=== PATIENT | female | born 1975 | race Caucasian/White ===

== ENCOUNTER 2024-05-29 01:19 | Observation (INO) ==
--- NOTE | 2024-05-29 01:29 | Emergency Department Note ---
Impression & Plan UTI (urinary tract infection), Abdominal pain, Nausea & vomiting, Hypertensive urgency ED Provider Note NAME: RAFAEL MUNSON AGE: 48 SEX: F : 1975 ARRIVES VIA: Ambulance INFORMANT: Patient ED PROVIDER(S): Jose Guthrie MD CHIEF COMPLAINT: Abdominal pain PLAN: Disposition: Admit MEDICAL DECISION MAKING: The patient is a 48-year-old woman with past medical history of type 2 diabetes, hypertension, GERD who presents to the emergency department via EMS and then accompanied by her mother and sister for evaluation of ongoing mid abdominal pain where the patient had reported vomiting blood repeatedly since yesterday. Patient had been seen at [facility] approximately 24 hours ago and then again at [facility] where she had extensive testing at both sites including CT scan of her head as well as CTA of her chest and abdomen pelvis. Patient had unremarkable blood work per discussion with [facility] emergency department discharge rn. Patient had been scheduled for an endoscopy with GI this morning for further assessment of her symptoms and had been given instructions for n.p.o. status for her assessment. The patient's mother and her sister report that they were concerned because of her ongoing pain and felt she is not acting her usual self. Thus, they bring her to this facility for additional evaluation. On evaluation patient is uncomfortable no distress, afebrile with blood pressure in 140s/80s and vital signs otherwise stable. She appears clinically dry. She has generalized abdominal discomfort without discrete tenderness. EKG without overt acute ischemia. CXR negative for acute cardiopulmonary process per my personal preliminary review/interpretation. WBC, H/H and platelets within normal limits. There is no left shift. Chemistry without metabolic acidosis. BUNs/creatinine 35, consistent with patient's clinically dry appearance. Total bilirubin is within normal limits. LFTs are otherwise normal. Ammonia is not elevated. High-sensitivity troponin is 10.6, within normal limits. Lipase is normal. Procalcitonin is within normal limits. UA is suspicious for infection with 2+ bacteria and WBCs albeit with negative nitrites. CT of the head was negative for acute normalities. CT of the chest demonstrates incidental ectasia of the ascending aorta and otherwise no septal thickening which is nonspecific and likely atelectasis. CT of the pelvis describes striated nephrogram of the superior pole of the left kidney which could suggest acute pyelonephritis. Infiltrative neoplasm is also possible but less likely. Description of distended bladder is noted however the patient did urinate significantly following CT per her RN. Upon evaluation the patient's blood pressure had become markedly elevated in the 200s/100s though did improve to the 170s/100s. Given the persistent of the patient's symptoms patient and mother agree with plan for admission for further management. IV ceftriaxone initiated for UTI with possible upper GI involvement. Patient was also given 10 mg of IV labetalol for hypertensive urgency. Additionally, the patient was given Carafate for suspicion of component of gastritis given the location of her abdominal pain and associated nausea. Adverse effects from patient's Ozempic is also considered. Case was discussed with [place]. Montiel, [facility] [place], who will evaluate the patient for admission. Further management per admitting team. Triage Nursing notes reviewed and agree them. Prior/external medical records reviewed Vital Signs: reviewed Differential diagnosis: Gastroenteritis, food borne illness, infections, appendicitis, diverticulitis, inflammatory bowel disease, obstruction, GI bleed, biliary pathology, volvulus, as well as other pathologies. ER treatment provided: See below. Diagnostics interpreted by me: ECG: Normal sinus rhythm, 98 bpm, no ectopy, no overt ST ovation or depression, QTc 510, QRS 92. Cardiac Monitoring: An order for continuous cardiac monitoring was placed and demonstrated Normal sinus rhythm, 98 bpm, no ectopy. Laboratory studies: See below Imaging studies: See below Consultation(s): Dr. Montiel [facility] [place], HPI: The patient is a 48-year-old woman with past medical history of type 2 diabetes, hypertension, GERD who presents to the emergency department via EMS and then accompanied by her mother and sister for evaluation of ongoing mid abdominal pain where the patient had reported vomiting blood repeatedly since yesterday. Patient had been seen at [facility] approximately 24 hours ago and then again at [facility] where she had extensive testing at both sites including CT scan of her head as well as CTA of her chest and abdomen pelvis. Patient had unremarkable blood work per discussion with [facility] emergency department discharge rn. Patient had been scheduled for an endoscopy with GI this morning for further assessment of her symptoms and had been given instructions for n.p.o. status for her assessment. The patient's mother and her sister report that they were concerned because of her ongoing pain and felt she is not acting her usual self. Thus, they bring her to this facility for additional evaluation. ROS: See above HPI for pertinent positives & negatives. A total of 10 systems reviewed and were otherwise negative. VITALS:See Below PHYSICAL EXAMINATION: GENERAL: Awake, alert, in no distress, BMI 28.6. HENT: Normocephalic, atraumatic. Oropharynx with dry mucous membranes and otherwise unremarkable. EYES: Normal conjunctiva. Sclera non-icteric. EOMI. No nystamgus. PEARRL. NECK: Supple. No nuchal rigidity. FROM. No JVD. No crepitus. RESPIRATORY: Clear to auscultation. CARDIAC: Regular rate, normal rhythm. Extremities warm and well perfused. Pulses equal. ABDOMEN: Soft, non-distended. Generalized abdominal discomfort without discrete tenderness to palpation. No rebound or guarding. No masses. MUSCULOSKELETAL: Chest examination reveals no tenderness. The back is symmetrical on inspection without obvious abnormality. There is no CVA tenderness to palpation. No joint edema. LOWER EXTREMITIES: Calves are equal size bilaterally and non-tender. No edema. No discoloration. NEURO: Normal sensorium. No sensory or motor deficits noted. 5/5 strength and SILT x 4 extremities. SKIN: No rash or jaundice noted. Jose Guthrie MD Past Med/Surg History Problem List (Updated 05/29/24 @ 10:01 by Jose Guthrie MD) Elevated blood sugar Bladder distended Hypertensive urgency (Acute) Nausea & vomiting (Acute) Abdominal pain (Acute) UTI (urinary tract infection) (Acute) Medical History Chronic heel ulcer Restless leg syndrome Hypertension Hyperlipidemia Neuropathy Type 2 diabetes mellitus Social History Smoking Status: Never smoker Second Hand Exposure: No; Do You Dip or Chew Tobacco: No; Tobacco Cessation Education Requested by Patient: No Hx Alcohol Use: No Hx Substance Use: No Preferred Language: Divehi Communication Ability: Effective [employer] Technical Director Required: No Beliefs That Will Affect Care: None Current Living Situation: Alone Other Information That Helps Us Care for You: No Feels Safe at Home: Yes Safety Concerns: Feels Safe At This Time Assistive Devices: None Allergies Allergies Allergy/AdvReac Type Severity Reaction Status Date / Time Penicillins Allergy Rash Verified 05/29/24 09:10 Results & Data (ED) Vital Signs Vital Signs - 24 hr 05/29/24 01:27 05/29/24 01:34 05/29/24 01:39 Temperature Source Oral Pulse Rate 87 95 H 98 H Pulse Rate [Apical] Pulse Rate from SpO2 Sensor 98 H Pulse Rhythm Regular Pulse Strength Normal Respiratory Rate 18 23 Respiratory Effort / Characteristics Non-Labored Respiratory Depth Normal Respiratory Pattern Regular Blood Pressure 141/89 H Blood Pressure [Left Arm] Blood Pressure Mean 106 Blood Pressure Mean [Left Arm] Blood Pressure Position Sitting Pulse Oximetry 93 95 Oxygen Delivery Method Room Air Sepsis Recent Fever Within 48 Hours No Sepsis New/Unexplained Change in Mental Status No Sepsis Action Taken by Nursing No Action Required 05/29/24 01:45 05/29/24 02:00 05/29/24 02:09 Temperature Source Pulse Rate 98 H 100 H Pulse Rate [Apical] Pulse Rate from SpO2 Sensor 98 H 101 H Pulse Rhythm Pulse Strength Respiratory Rate 14 19 Respiratory Effort / Characteristics Respiratory Depth Respiratory Pattern Blood Pressure 155/115 H Blood Pressure [Left Arm] Blood Pressure Mean 130 Blood Pressure Mean [Left Arm] Blood Pressure Position Pulse Oximetry 92 92 Oxygen Delivery Method Sepsis Recent Fever Within 48 Hours Sepsis New/Unexplained Change in Mental Status Sepsis Action Taken by Nursing 05/29/24 02:39 05/29/24 03:00 05/29/24 03:39 Temperature Source Pulse Rate 101 H 97 H Pulse Rate [Apical] 100 H Pulse Rate from SpO2 Sensor 101 H 97 H Pulse Rhythm Pulse Strength Respiratory Rate 22 11 L 22 Respiratory Effort / Characteristics Non-Labored Spontaneous Respiratory Depth Normal Respiratory Pattern Regular Blood Pressure Blood Pressure [Left Arm] 201/116 H Blood Pressure Mean Blood Pressure Mean [Left Arm] 144 Blood Pressure Position Pulse Oximetry 93 92 96 Oxygen Delivery Method Room Air Sepsis Recent Fever Within 48 Hours Sepsis New/Unexplained Change in Mental Status Sepsis Action Taken by Nursing 05/29/24 05:03 05/29/24 05:19 05/29/24 05:30 Temperature Source Pulse Rate 103 H 101 H Pulse Rate [Apical] 99 H Pulse Rate from SpO2 Sensor Pulse Rhythm Pulse Strength Respiratory Rate 14 Respiratory Effort / Characteristics Non-Labored Spontaneous Respiratory Depth Normal Respiratory Pattern Regular Blood Pressure 177/102 H Blood Pressure [Left Arm] 166/108 H Blood Pressure Mean Blood Pressure Mean [Left Arm] 127 Blood Pressure Position Pulse Oximetry 93 Oxygen Delivery Method Room Air Sepsis Recent Fever Within 48 Hours Sepsis New/Unexplained Change in Mental Status Sepsis Action Taken by Nursing 05/29/24 06:14 Temperature Source Pulse Rate Pulse Rate [Apical] 102 H Pulse Rate from SpO2 Sensor Pulse Rhythm Pulse Strength Respiratory Rate 12 Respiratory Effort / Characteristics Respiratory Depth Respiratory Pattern Blood Pressure Blood Pressure [Left Arm] 178/103 H Blood Pressure Mean Blood Pressure Mean [Left Arm] 128 Blood Pressure Position Pulse Oximetry 97 Oxygen Delivery Method Room Air Sepsis Recent Fever Within 48 Hours Sepsis New/Unexplained Change in Mental Status Sepsis Action Taken by Nursing Laboratory Data Attestation: I reviewed the patient's lab results. 05/29/24 01:34 05/29/24 01:34 Lab Results 05/29/24 05/29/24 05/29/24 Range/Units 01:34 02:06 03:37 WBC 9.36 (4.8-10.8) K/ul RBC 4.71 (4.20-5.40) M/uL Hgb 13.6 (12.0-16.0) g/dl Hct 41.7 (37.0-47.0) % MCV 88.5 (80.0-100.0) fL MCH 28.9 (25.0-34.0) pg MCHC 32.6 (32.0-36.0) g/dL RDW Std Deviation 41.9 (36.4-46.3) fL RDW Coeff of Rocio 13.0 (11.5-14.5) % Plt Count 274 (130-400) K/uL MPV 11.3 (9.4-12.4) fL Immature Gran % (Auto) 0.4 % Neut % (Auto) 73.6 % Lymph % (Auto) 17.1 % Tyrrell % (Auto) 8.7 % Eos % (Auto) 0.0 % Baso % (Auto) 0.2 % Neut # (Auto) 6.89 H (1.40-6.50) K/uL Lymph # (Auto) 1.60 (1.20-3.40) K/uL Tyrrell # (Auto) 0.81 H (0.11-0.59) K/uL Eos # (Auto) 0.00 (0.00-0.50) K/uL Baso # (Auto) 0.02 (0.00-0.20) K/uL Immature Gran # (Auto) 0.04 (0.01-0.20) K/uL PT 11.5 (9.0-12.0) Seconds INR 1.1 (0.9-1.1) Sodium 145 (136-145) mmol/L Potassium 3.7 (3.5-5.1) mmol/L Chloride 108 H (98-107) mmol/L Carbon Dioxide 27 (21-32) mmol/L Anion Gap 10 (3-11) BUN 27 H (6-23) mg/dl Creatinine 0.77 (0.6-1.2) mg/dl Est Cr Clr Drug Dosing 101.2 ml/min Est GFR ( Amer) 105.1 ml/min Est GFR (Non-Af Amer) 90.7 ml/min BUN/Creatinine Ratio 35.1 H (10-20) Glucose 283 H (70-99(Fasting)) mg/dl Calcium 9.1 (8.6-10.3) mg/dl Total Bilirubin 0.7 (0.2-1.0) mg/dl Direct Bilirubin 0.1 (0-0.2) mg/dl AST 17 (13-39) U/L ALT 16 (7-52) U/L Alkaline Phosphatase 76 (34-104) U/L Ammonia 15.0 L (18-72) umol/L Troponin I High Sens 10.6 (0-14) pg/ml Total Protein 7.7 (6.0-8.3) gm/dl Albumin 3.9 (3.4-5.0) gm/dl Globulin 3.8 (2.5-4.0) gm/dl Albumin/Globulin Ratio 1.0 (0.9-2) Lipase 16 (11-82) U/L Procalcitonin 0.09 (0-0.5) ng/ml Urine Color Yellow Urine Appearance Clear (Clear) Urine pH 6.0 (4.5-7.5) Ur Specific Superior > 1.045 H (1.000-1.030) Urine Protein 2+ H (Negative) Urine Glucose (UA) 3+ H (Negative) Urine Ketones 2+ H (Negative) Urine Blood Negative (Negative) Urine Nitrite Negative (Negative) Urine Bilirubin Negative (Negative) Urine Urobilinogen Negative (Negative) Ur Leukocyte Esterase Negative (Negative) Urine WBC (Auto) 6-10 H (0-5) /hpf Urine RBC (Auto) 0-2 (0-2) /hpf U Hyaline Cast (Auto) 0-2 (0-2) /lpf U Epithel Cells (Auto) 6-10 H (0-2) /hpf Urine Bacteria (Auto) 2+ H (None Seen) Urine Opiates Screen Pos H (Neg) Ur Methadone, Qual Neg (Neg) Urine Fentanyl Screen Neg (Neg) Urine Barbiturates Neg (Neg) Ur Phencyclidine (PCP) Neg (Neg) U Amphetamin/Meth Scrn Neg (Neg) MDMA (Ecstasy) Screen Neg (Neg) U Benzodiazepines Scrn Neg (Neg) Ur Cocaine Metabolite Neg (Neg) U Marijuana (THC) Screen Neg (Neg) Ethyl Alcohol mg/dL < 10.0 (<10.0) mg/dl Administered Medications Discontinued Medications Dicyclomine HCl (Dicyclomine Hcl 10 Mg/Ml 2 Ml Amp/Vial) 20 mg IM NOW ONE Stop: 05/29/24 04:58 Last Admin: 05/29/24 06:04 Dose: 20 mg Documented By: PEDRO Sodium Chloride (Nss) 1,000 mls @ 999 mls/hr IV .Q1H1M ONE Stop: 05/29/24 02:28 Last Infusion: 05/29/24 03:01 Dose: Infused Documented By: Admin: 05/29/24 01:49 Dose: 999 mls/hr Documented By: RADHA Famotidine (Pepcid 20mg Iv Push) 20 mg in 5 mls @ 2.5 mls/min IV NOW STA Stop: 05/29/24 01:29 Last Admin: 05/29/24 01:49 Dose: 2.5 mls/min Documented By: RADHA Promethazine HCl (Phenergan) 25 mg in 51 mls @ 204 mls/hr IV NOW STA Stop: 05/29/24 01:42 Last Infusion: 05/29/24 03:01 Dose: Infused Documented By: Admin: 05/29/24 01:52 Dose: 204 mls/hr Documented By: RADHA Pantoprazole Sodium 40 mg/ (Syringe) 10 mls @ 5 mls/min IV NOW ONE Stop: 05/29/24 01:41 Last Admin: 05/29/24 03:10 Dose: 5 mls/min Documented By: PEDRO Ceftriaxone Sodium (Rocephin) 2,000 mg in 50 mls @ 100 mls/hr IV NOW STA Stop: 05/29/24 05:16 Last Infusion: 05/29/24 06:57 Dose: Infused Documented By: Admin: 05/29/24 05:09 Dose: 100 mls/hr Documented By: PEDRO Ioversol (Optiray 320 125ml) 125 ml IV ONCE ONE Stop: 05/29/24 02:23 Last Admin: 05/29/24 02:22 Dose: 118 ml Documented By: TOM Labetalol HCl (Labetalol Hcl Iv 5 Mg/Ml 20ml) 10 mg IV NOW STA Stop: 05/29/24 04:58 Last Admin: 05/29/24 05:03 Dose: 10 mg Documented By: PEDRO Sucralfate (Sucralfate 1 Gm/10 Ml Udc) 1 gm PO NOW STA Stop: 05/29/24 04:58 Last Admin: 05/29/24 05:46 Dose: 1 gm Documented By: PEDRO Imaging Data Radiologist's Impression: Chest X-Ray 05/29/24 01:27 XR chest 1V portable CLINICAL HISTORY: Abdominal pain, nausea and vomiting. COMPARISON STUDY: No previous studies for comparison. FINDINGS: There is mild elevation of the right hemidiaphragm. No pneumothorax or pleural effusion is present. Bibasilar linear densities favor atelectasis. There is borderline cardiomegaly without evidence for pulmonary edema. IMPRESSION: 1. No acute cardiopulmonary findings. 2. Linear bibasilar densities suggestive of atelectasis. ACT 112: Negative or not required by law. Electronically signed by: Priyank Archibald M.D. 05/29/2024 7:04 AM Abdomen/Pelvis CT 05/29/24 01:43 Exam(s): CT ABDOMEN + PELVIS With Contrast IV Amt: 118 ml optiray 320 EXAM: CT Abdomen and Pelvis With Intravenous Contrast CLINICAL HISTORY: Abdominal Pain. TECHNIQUE: Axial computed tomography images of the abdomen and pelvis with intravenous contrast. CTDI is 38.03 mGy and DLP is 3010.95 mGy-cm. Automated exposure control was utilized for the study. A dose lowering technique was utilized adhering to the principles of ALARA. CONTRAST: Patient received 118 ml optiray 320 of IV contrast COMPARISON: No relevant prior studies available. FINDINGS: Lung bases: Unremarkable. No mass. No consolidation. ABDOMEN: Liver: Unremarkable. No mass. Gallbladder and bile ducts: Cholecystectomy. No ductal dilation. Pancreas: Unremarkable. No mass. No ductal dilation. Spleen: Unremarkable. No splenomegaly. Adrenals: Unremarkable. No mass. Kidneys and ureters: Striated nephrogram of the superior pole of the left kidney could represent acute pyelonephritis, infiltrative neoplasm of acute tubular necrosis or considered less likely. No hydronephrosis. Stomach and bowel: Unremarkable. No obstruction. No mucosal thickening. PELVIS: Appendix: Normal appendix. Bladder: Markedly distended urinary bladder. Reproductive: Hysterectomy. ABDOMEN and PELVIS: Intraperitoneal space: Unremarkable. No free air. No significant fluid collection. Bones/joints: There are degenerative changes of the spine. No acute fracture. No dislocation. Soft tissues: Unremarkable. Vasculature: Minimal atherosclerosis. No abdominal aortic aneurysm. Lymph nodes: Unremarkable. No enlarged lymph nodes. IMPRESSION: 1. Striated nephrogram of the superior pole of the left kidney could represent acute pyelonephritis, infiltrative neoplasm of acute tubular necrosis or considered less likely. 2. Markedly distended urinary bladder. Cannot exclude outlet obstruction. 3. No evidence of colon mass, however recommend follow-up with colonoscopy for complete evaluation. Electronically signed by: Christina Gee MD 05/29/24 03:09 AM Chest CTA 05/29/24 01:43 Exam(s): CTA CHEST IV Amt: 118 ml optiray 320 EXAM: CT Angiography Chest With Intravenous Contrast CLINICAL HISTORY: Chest Pain TECHNIQUE: Axial computed tomographic angiography images of the chest with intravenous contrast. MIPS images were created and reviewed. CTDI is 38. 03 mGy and DLP is 3010.95 mGy-cm. Automated exposure control was utilized for the study. A dose lowering technique was utilized adhering to the principles of ALARA. MIP reconstructed images were created and reviewed. COMPARISON: No relevant prior studies available. FINDINGS: Pulmonary arteries: Unremarkable. No pulmonary embolus. Aorta: There is ectasia of the ascending aorta measuring 3.6 cm. No thoracic aortic aneurysm. Lungs: Interseptal thickening could relate to atelectasis and/or pulmonary edema. No mass. Pleural space: Unremarkable. No significant effusion. No pneumothorax. Heart: Upper limits of normal cardiac silhouette. No significant pericardial effusion. No evidence of RV dysfunction. Bones/joints: There are degenerative changes of the spine. No acute fracture. No dislocation. Soft tissues: Unremarkable. Lymph nodes: Unremarkable. No enlarged lymph nodes. IMPRESSION: 1. No pulmonary embolus. 2. There is ectasia of the ascending aorta measuring 3.6 cm. 3. Interseptal thickening could relate to atelectasis and/or pulmonary edema. Electronically signed by: Christina Gee MD 05/29/24 03:[address] 05/29/24 01:43 Exam(s): CT HEAD Without Contrast EXAM: CT Head Without Intravenous Contrast CLINICAL HISTORY: Altered mental status. TECHNIQUE: Axial computed tomography images of the head/brain without intravenous contrast. CTDI is 27.32 mGy and DLP is 3010.95 mGy-cm. Automated exposure control was utilized for the study. A dose lowering technique was utilized adhering to the principles of ALARA. COMPARISON: No relevant prior studies available. FINDINGS: Brain: Unremarkable. No significant white matter disease. No intracranial hemorrhage, mass-effect or midline shift. No abnormal extra axial fluid. No evidence of acute infarct. Ventricles: Unremarkable. No ventriculomegaly. Bones/joints: Unremarkable. No acute fracture. Soft tissues: Unremarkable. Sinuses: There is mild mucosal thickening of the ethmoid and maxillary sinuses. The remaining visualized paranasal sinuses are clear. Mastoid air cells: Unremarkable as visualized. No mastoid effusion. IMPRESSION: No acute intracranial finding. Electronically signed by: Christina Gee MD 05/29/24 03:11 AM Discharge Plan Visit Data Chief Complaint: Abdominal Pain Stated Complaint: AB PAIN, VOMITING BLOOD ED Provider: Jose Guthrie Discharge Problem: UTI (urinary tract infection), Abdominal pain, Nausea & vomiting, Hypertensive urgency Patient Disposition: Admitted As Inpatient Discharge Instructions Interventions: ED Discharge Assessment Last Done: 05/29/24 08:23 Discharge Problem: UTI (urinary tract infection) Qualifiers: Urinary tract infection type: site unspecified Hematuria presence: with hematuria Qualified Code(s): N39.0 - Urinary tract infection, site not specified ; R31.9 - Hematuria, unspecified Abdominal pain Qualifiers: Abdominal location: generalized Qualified Code(s): R10.84 - Generalized abdominal pain Nausea & vomiting Qualifiers: Vomiting type: unspecified Qualified Code(s): R11.2 - Nausea with vomiting, unspecified
[2024-05-29] MEDS: FAMOTIDINE 20MG IV PUSH 20 MG/5 ML SYR IV STA (01:49)
[2024-05-29] MEDS: SODIUM CHLORIDE 0.9% 1,000 ML IV ONE (01:49)
[2024-05-29] MEDS: PROMETHAZINE 25 MG/51 ML BAG IV STA (01:52)
[2024-05-29 02:06] LABS: Albumin Level 3.9 gm/dl (3.4-5.0); BUN Creatinine Ratio 35.1 (10-20); Bilirubin Direct 0.1 mg/dl (0-0.2); Bilirubin,Total 0.7 mg/dl (0.2-1.0); Calcium 9.1 mg/dl (8.6-10.3); Creatinine Clr Calc Pharmacy 101.2 ml/min; Est GFR (African American) 105.1 ml/min; Est GFR (Non-African American) 90.7 ml/min; Globulin 3.8 gm/dl (2.5-4.0); Potassium 3.7 mmol/L (3.5-5.1); Total Protein 7.7 gm/dl (6.0-8.3)
[2024-05-29 02:10] LABS: Basophils # (auto) 0.02 K/uL (0.00-0.20); Basophils % (auto) 0.2 %; Hematocrit (blood only) 41.7 % (37.0-47.0); Hemoglobin 13.6 g/dl (12.0-16.0); Immature Granulocytes # (auto) 0.04 K/uL (0.01-0.20); Immature Granulocytes % (auto) 0.4 %; Lymphocytes % (auto) 17.1 %; Mean Corpuscular Hemoglobin 28.9 pg (25.0-34.0); Mean Corpuscular Hgb Conc 32.6 g/dL (32.0-36.0); Mean Corpuscular Volume 88.5 fL (80.0-100.0); Mean Platelet Volume 11.3 fL (9.4-12.4); Monocytes # (auto) 0.81 K/uL (0.11-0.59); Monocytes % (auto) 8.7 %; Neutrophils # (auto) 6.89 K/uL (1.40-6.50); Neutrophils % (auto) 73.6 %; Platelet Count 274 K/uL (130-400); RDW Standard Deviation 41.9 fL (36.4-46.3); Red Blood Count 4.71 M/uL (4.20-5.40); White Blood Count 9.36 K/ul (4.8-10.8)
[2024-05-29 02:12] LABS: Troponin I High Sensitivity 10.6 pg/ml (0-14)
[2024-05-29 02:17] LABS: INR 1.1 (0.9-1.1); Prothrombin Time 11.5 Seconds (9.0-12.0)
[2024-05-29] MEDS: OPTIRAY 320 125ml IV ONE (02:22)
[2024-05-29] MEDS: PANTOprazole 40 MG in SYRINGE 0 ML IV ONE (03:10)
--- NOTE | 2024-05-29 03:10 | CT Scan Report ---
Exam(s): CT ABDOMEN + PELVIS With Contrast IV Amt: 118 ml optiray 320 EXAM: CT Abdomen and Pelvis With Intravenous Contrast CLINICAL HISTORY: Abdominal Pain. TECHNIQUE: Axial computed tomography images of the abdomen and pelvis with intravenous contrast. CTDI is 38.03 mGy and DLP is 3010.95 mGy-cm. Automated exposure control was utilized for the study. A dose lowering technique was utilized adhering to the principles of ALARA. CONTRAST: Patient received 118 ml optiray 320 of IV contrast COMPARISON: No relevant prior studies available. FINDINGS: Lung bases: Unremarkable. No mass. No consolidation. ABDOMEN: Liver: Unremarkable. No mass. Gallbladder and bile ducts: Cholecystectomy. No ductal dilation. Pancreas: Unremarkable. No mass. No ductal dilation. Spleen: Unremarkable. No splenomegaly. Adrenals: Unremarkable. No mass. Kidneys and ureters: Striated nephrogram of the superior pole of the left kidney could represent acute pyelonephritis, infiltrative neoplasm of acute tubular necrosis or considered less likely. No hydronephrosis. Stomach and bowel: Unremarkable. No obstruction. No mucosal thickening. PELVIS: Appendix: Normal appendix. Bladder: Markedly distended urinary bladder. Reproductive: Hysterectomy. ABDOMEN and PELVIS: Intraperitoneal space: Unremarkable. No free air. No significant fluid collection. Bones/joints: There are degenerative changes of the spine. No acute fracture. No dislocation. Soft tissues: Unremarkable. Vasculature: Minimal atherosclerosis. No abdominal aortic aneurysm. Lymph nodes: Unremarkable. No enlarged lymph nodes. IMPRESSION: 1. Striated nephrogram of the superior pole of the left kidney could represent acute pyelonephritis, infiltrative neoplasm of acute tubular necrosis or considered less likely. 2. Markedly distended urinary bladder. Cannot exclude outlet obstruction. 3. No evidence of colon mass, however recommend follow-up with colonoscopy for complete evaluation. Electronically signed by: Christina Gee MD 05/29/24 03:09 AM
--- NOTE | 2024-05-29 03:12 | CT Scan Report ---
Exam(s): CT HEAD Without Contrast EXAM: CT Head Without Intravenous Contrast CLINICAL HISTORY: Altered mental status. TECHNIQUE: Axial computed tomography images of the head/brain without intravenous contrast. CTDI is 27.32 mGy and DLP is 3010.95 mGy-cm. Automated exposure control was utilized for the study. A dose lowering technique was utilized adhering to the principles of ALARA. COMPARISON: No relevant prior studies available. FINDINGS: Brain: Unremarkable. No significant white matter disease. No intracranial hemorrhage, mass-effect or midline shift. No abnormal extra axial fluid. No evidence of acute infarct. Ventricles: Unremarkable. No ventriculomegaly. Bones/joints: Unremarkable. No acute fracture. Soft tissues: Unremarkable. Sinuses: There is mild mucosal thickening of the ethmoid and maxillary sinuses. The remaining visualized paranasal sinuses are clear. Mastoid air cells: Unremarkable as visualized. No mastoid effusion. IMPRESSION: No acute intracranial finding. Electronically signed by: Christina Gee MD 05/29/24 03:11 AM
--- NOTE | 2024-05-29 03:16 | CT Scan Report ---
Exam(s): CTA CHEST IV Amt: 118 ml optiray 320 EXAM: CT Angiography Chest With Intravenous Contrast CLINICAL HISTORY: Chest Pain TECHNIQUE: Axial computed tomographic angiography images of the chest with intravenous contrast. MIPS images were created and reviewed. CTDI is 38. 03 mGy and DLP is 3010.95 mGy-cm. Automated exposure control was utilized for the study. A dose lowering technique was utilized adhering to the principles of ALARA. MIP reconstructed images were created and reviewed. COMPARISON: No relevant prior studies available. FINDINGS: Pulmonary arteries: Unremarkable. No pulmonary embolus. Aorta: There is ectasia of the ascending aorta measuring 3.6 cm. No thoracic aortic aneurysm. Lungs: Interseptal thickening could relate to atelectasis and/or pulmonary edema. No mass. Pleural space: Unremarkable. No significant effusion. No pneumothorax. Heart: Upper limits of normal cardiac silhouette. No significant pericardial effusion. No evidence of RV dysfunction. Bones/joints: There are degenerative changes of the spine. No acute fracture. No dislocation. Soft tissues: Unremarkable. Lymph nodes: Unremarkable. No enlarged lymph nodes. IMPRESSION: 1. No pulmonary embolus. 2. There is ectasia of the ascending aorta measuring 3.6 cm. 3. Interseptal thickening could relate to atelectasis and/or pulmonary edema. Electronically signed by: Christina Gee MD 05/29/24 03:15 AM
[2024-05-29 04:03] LABS: Appearance Urine Clear (Clear); Bacteria Urine Automated 2+ (None Seen); Bilirubin Urine Negative (Negative); Blood Urine Negative (Negative); Color Urine Yellow; Glucose Urine UA 3+ (Negative); Ketones Urine 2+ (Negative); Leukocyte Esterase Urine Negative (Negative); Nitrite Urine Negative (Negative); Protein Urine 2+ (Negative); Specific Gravity Urine > 1.045 (1.000-1.030); Urobilinogen Urine Negative (Negative)
[2024-05-29 04:18] LABS: Amphetamines+Metham, Urine Neg (Neg); Barbiturates, Urine Neg (Neg); Benzodiazepine, Urine Neg (Neg); Cocaine, Urine Neg (Neg); Fentanyl, Urine Neg (Neg); MDMA (Ecstacy), Urine Neg (Neg); Marijuana, Urine Neg (Neg); Methadone, Urine Neg (Neg); Opiate, Urine Pos (Neg); Phencyclidine, Urine Neg (Neg)
[2024-05-29 04:44] LABS: Cast Urine Automated 0-2 /lpf (0-2); RBC Urine Automated 0-2 /hpf (0-2)
[2024-05-29] MEDS: LABETALOL HCL IV 5 MG/ML 20ML IV STA (05:03)
[2024-05-29] MEDS: cefTRIAXone SODIUM 2,000 MG/50 ML BAG IV STA (05:09)
[2024-05-29] MEDS: SUCRALFATE 1 GM/10 ML UDC PO STA (05:46)
[2024-05-29] MEDS: DICYCLOMINE HCL 10 MG/ML 2 ML AMP/VIAL IM ONE (06:04)
--- NOTE | 2024-05-29 06:44 | History & Physical Report ---
Date of Service May 29, 2024 Assessment & Plan (1) Abdominal pain: Plan: 48F who presents to the ER with abdominal pain, nausea, vomiting x 3 days. Now admitted for further evaluation, symptomatic management. Abdominal Pain/Nausea/Vomiting/Bladder Distention -Left kidney striation, bladder distention noted on CT A/P. No sign of kidney stone, or hydronephrosis. No evidence of colonic mass, though colonoscopy recommended for full evaluation. -Electrolytes, LFTs, CBC unremarkable. UA mildly positive, but not strongly indicative of UTI. UDS positive for opiates, though most likely from pain control given previous hospital. PDMP shows she was last prescribed oxycodone 5 mg in October 2022. Full urine drug report pending. -Etiology unclear at this time. Left kidney findings notable but does not correlate clinically with patient's presentation (no flank pain, no dysuria, nonradiating abdominal pain), save for emesis. Also unable to review discharge summary from [facility] as of the time of this note when scanned into chart, would be useful to glean for additional diagnostic information. * Admit to med telemetry n.p.o. * IV Zofran every 4 hours as needed nausea * IV Protonix 40 mg twice daily EUNICE * IV famotidine 20 mg twice daily as needed * Maintenance IVF: LR@125 mL/h x 1 bag * Repeat H&H this a.m. * Repeat BMP ordered for noon * Urine culture pending * Bladder scan, straight cath as needed * GI consult placed for evaluation for possible upper endoscopy Elevated Blood Sugar -BSG 283 on arrival. No prior labs, HgbA1c in chart patient originally from [place]. * SSI, ACHS checks per protocol (range 100-140; CF = 40, CR = 20) * HgbA1c ordered Code: Full code Dispo: Med-Surg telemetry FEN/GI: NPO. LR @maintenance rate. DVT Prophylaxis: Held PT/OT: No Consults: Gastroenterology Case Management: No (2) Nausea & vomiting: (3) Bladder distended: (4) Elevated blood sugar: History of Present Illness Primary Care Provider: NO PCP Maxine is a 48-year-old woman with no significant past medical history visiting from [place] who presents to the ER with her mom with a complaint of abdominal pain, nausea, and hematemesis since Tuesday. Symptoms began with nonradiating abdominal pain, then proceeded to vomiting blood soon after. She initially presented to the hospital in [place], where she received IV Zofran and was sent home. She continued throwing up blood over the following day, until Tuesday when she traveled to [place] to be with her sister. Sister then took her to her mother in [place], where she again went to the hospital. There she received IV morphine, and Dilaudid, at which point she was again discharged. Mom then decided to bring her to [facility], where she presented to the ER. ER workup was notable for blood glucose of 283, UA positive for proteinuria 2+, glucosuria 3+, ketonuria 2+, bacteria 2+ (negative nitrates, no leuk esterases), and UDS positive for opiates. Otherwise, WBC, Hgb, electrolytes, LFTs, procalcitonin, lipase were all normal. CT A/P noted "striated nephrogram at superior pole of the left kidney could represent acute pyelonephritis, infiltrative neoplasm of acute tubular necrosis or considered less likely" and a "markedly distended urinary bladder." She received IV Phenergan, IV Bentyl, IV Protonix, IV Carafate, IV Pepcid, IV ceftriaxone, and a 1 L NS bolus. Hospitalist service was then consulted for admission. On admission, she continues to endorse nausea, periumbilical, RLQ abdominal pain. She denies difficulty voiding, burning with urination, urinary frequency, constipation, or diarrhea. Allergies Allergy/AdvReac Type Severity Reaction Status Date / Time Penicillins Allergy Rash Verified 05/29/24 09:10 Past Med/Surg History Problem List (Updated 05/29/24 @ 10:01 by Jose Guthrie MD) Elevated blood sugar Bladder distended Hypertensive urgency (Acute) Nausea & vomiting (Acute) Abdominal pain (Acute) UTI (urinary tract infection) (Acute) Medical History Chronic heel ulcer Restless leg syndrome Hypertension Hyperlipidemia Neuropathy Type 2 diabetes mellitus Social History Smoking Status: Never smoker Second Hand Exposure: No; Do You Dip or Chew Tobacco: No; Tobacco Cessation Education Requested by Patient: No Hx Alcohol Use: No Hx Substance Use: No Preferred Language: Sierra Leonean Communication Ability: Effective Plumbing Foreman Required: No Beliefs That Will Affect Care: None Current Living Situation: Alone Other Information That Helps Us Care for You: No Feels Safe at Home: Yes Safety Concerns: Feels Safe At This Time Assistive Devices: None Review of Systems Review of Systems: All systems reviewed & are unremarkable except as noted in HPI & below Physical Exam Physical Exam: General: Tired appearing woman in mild distress. HEENT: PERRLA. Normal conjunctiva, anicteric sclera. Poor dentition noted. Respiratory: Normal respiratory effort, CTABL. Cardiovascular: Tachycardic. Regular rhythm. No murmurs, gallops, or rubs. No pedal edema. GI: Tenderness to moderate palpation elicited at the umbilicus, RLQ, and suprapubic areas. Neuro: Alert and oriented x3. Results & Data Results & Data Vital Signs (Past 12 Hours) Vital Signs Pulse Pulse Resp BP BP Pulse Ox O2 Del Method 05/29/24 06:14 102 H 12 178/103 H 97 Room Air 05/29/24 05:30 101 H 05/29/24 05:19 99 H 14 166/108 H 93 Room Air 05/29/24 05:03 103 H 177/102 H 05/29/24 03:39 100 H 22 201/116 H 96 Room Air 05/29/24 03:00 97 H 11 L 92 05/29/24 02:39 101 H 22 93 05/29/24 02:09 100 H 19 92 05/29/24 02:00 155/115 H 05/29/24 01:45 98 H 14 92 05/29/24 01:39 98 H 23 95 05/29/24 01:34 95 H 05/29/24 01:27 87 18 141/89 H 93 Room Air Supervising Physician Co-Signing Physician Notes Attending addendum: I have physically seen this patient, have supervised the medical residents activities, and agree with the H&P unless as otherwise noted. Assessment and Plan: Left acute pyelonephritis/bladder outlet extraction/urinary tract infection- Follow urine culture sensitivity Continue empiric ceftriaxone 2 g IV daily Status post 1 L normal saline bolus in the ED Continue maintenance IV fluids as noted, LR at 125 mL/h x 1 L Zofran 4 mg IV every 6 hours as needed Pantoprazole 40 mg IV twice daily Famotidine 20 mg IV twice daily Abdominal pain/nausea- CT scan abdomen pelvis without acute GI pathology Pantoprazole IV as noted above Hold Ozempic as potential cause, which she has been on for 3 weeks Consult gastroenterology Hyperglycemia in diabetes mellitus- Hold oral medications Placed on Accu-Cheks with NovoLog SSI hemoglobin A1c Resident Activity Tracking Resident Involvement: Resident Care Provided Care Provided: Adult Hospital Medicine (1) Abdominal pain Abdominal location: generalized Qualified Code(s): R10.84 - Generalized abdominal pain (2) Nausea & vomiting Vomiting type: unspecified Qualified Code(s): R11.2 - Nausea with vomiting, unspecified
--- NOTE | 2024-05-29 07:06 | XRay Report ---
XR chest 1V portable CLINICAL HISTORY: Abdominal pain, nausea and vomiting. COMPARISON STUDY: No previous studies for comparison. FINDINGS: There is mild elevation of the right hemidiaphragm. No pneumothorax or pleural effusion is present. Bibasilar linear densities favor atelectasis. There is borderline cardiomegaly without evide nce for pulmonary edema. IMPRESSION: 1. No acute cardiopulmonary findings. 2. Linear bibasilar densities suggestive of atelectasis. ACT 112: Negative or not required by law. Electronically signed by: Priyank Archibald M.D. 05/29/2024 7:04 AM
[2024-05-29] MEDS ORDERED: ALUMINUM/MAGNESIUM/SIMETH (MAALOX MAX) 30 ML UDC PO PRN (08:49)
[2024-05-29] MEDS ORDERED: FAMOTIDINE 20MG IV PUSH 20 MG/5 ML SYR IV PRN (08:49)
[2024-05-29] MEDS ORDERED: CARBOHYDRATES FOR HYPOGLYCEMIA PO PRN (08:49)
[2024-05-29] MEDS ORDERED: GLUCOSE 40% GEL 15 GM TUBE PO PRN (08:49)
[2024-05-29] MEDS ORDERED: HYDROmorphone INJ 0.5 MG/0.5 ML SYR IV PRN (08:49)
[2024-05-29] MEDS ORDERED: DEXTROSE 50% 50 ML SYRINGE IV PRN (08:49)
[2024-05-29] MEDS ORDERED: GLUCAGON FOR INJ 1 MG VIAL SQ PRN (08:49)
[2024-05-29] MEDS ORDERED: GLUCOSE 10 TAB/TUBE PO PRN (08:49)
[2024-05-29] MEDS ORDERED: Patient's ALLERGY Info needs ENTERED STA (08:53)
--- NOTE | 2024-05-29 09:34 | Gastrointestinal Consultation ---
Date of Consultation May 29, 2024 Assessment & Plan (1) Nausea & vomitin48 year old female with history of T2DM, HTN, dyslipidemia who recently started Ozempic about a month ago who is admitted after 2 ED visits at OSH for altered mental status, HTN urgency w/ ongoing abd pain, nausea/vomiting, reports of hematemesis, imaging w/ a distended urinary bladder, striated superior pole of the left kidney, concerning for possible pyelonephritis vs other. H&H on admission stable, repeat HGB pending w/o BUN elevation. She has remained hypertensive with BP this AM 177/108. GI DDX discussed including suspected esophagitis or Janee-Arvizu tear related to prolonged episodes of nausea/vomiting vs other. As there has been no ongoing evidence of GI bleeding and stable HGB, will defer endoscopic evaluation until mental status changes are addressed and HTN urgency is treated. Of course, in the event an urgent endoscopic evaluation was warranted, we are happy to arrange a timely endoscopic intervention. Trend H&H Monitor and document GI output Transfuse PRN per primary service IV PPI BID for 48 hours then PO PPI BID Avoid NSAIDs Can continue anti-emetics as needed Keep NPO after midnight for GI evaluation Consider an alternative to Ozempic as it appears she is having difficultly tolerating this medication We appreciate assistance in the management of any serological abnormality and corrections to include: hemoglobin >7, INR <2, platelets >50,000, potassium levels >3.5 but <5.3, and sodium levels within 5 points of the reference range prior to endoscopic evaluation. I spent a total of 60 minutes on the date of service in review of patient's record, and previously obtained information in person and appropriate medical visit, discussion and education of plan, with patient and/or caregiver, placing orders for tests/referral/procedures as medically necessary and documentation of pertinent clinical information in patient's medical records for their visit today. Supervising Physician Co-Signing Physician Notes I personally saw and examined the patient. I have reviewed the chart and agree with the documentation provided by the LOOSE [employer] P[employer]ER including discussion about the assessment, treatment and plan. Briefly, 48 year old female with history of T2DM on ozempic for about 3 weeks, HTN, dyslipidemia presenting to the ED for evaluation of abdominal pain, nausea/vomiting and reports of hematemesis - admitted for treatment of hypertensive urgency and UTI. N/V and hematemesis. ? MW tear vs pud or gastritis or esophagitis. MS has improved. Will check in am and keep pt npo. Can consider EGD in am based on mental status and bp. History of Present Illness Reason for Consultation: abd pain, nausea/vomiting Requesting Physician: Jose Alfredo Montiel MD Attending Physician: Jose Alfredo Montiel MD History of Present Illness 48 year old female with history of T2DM on ozempic for about 3 weeks, HTN, dyslipidemia presenting to the ED for evaluation of abdominal pain, nausea/vomiting and reports of hematemesis - admitted for treatment of hypertensive urgency and UTI. GI was asked to evaluate. Pt was seen and evaluated, chart reviewed. No family at bedside. She is somewhat of a l imited/poor historian. History obtained from nursing staff and mother who notes her GI symptoms have been present since starting Ozempic. On third injection. She tells me her current symptoms stared about three days ago. Generalized abd pain w/ associated nausea and vomiting. Suggests the vomiting was brown to start but began to see some blood in the vomit. She is not able to quantify the volume or blood or whether it was bright red appearing or coffee ground emesis appearing. She suggests since, she has had ongoing emesis that was mixed with blood. She tells me she vomited today and this also had blood in it - when asked to describe the color she suggests "brown." I discussed with nursing and there has not been an emesis with blood and that Denies diarrhea/constipation, black or bloody bowel movements. HGB 13.6 --> pending BUN 27 Tbili 0.7 AST 17 ALT 16 ALKP 76 Lipase 16 CTAP 2023: Liver: Unremarkable. No mass. Gallbladder and bile ducts: Cholecystectomy. No ductal dilation. Pancreas: Unremarkable. No mass. No ductal dilation. Kidneys and ureters: Striated nephrogram of the superior pole of the left kidney could represent acute pyelonephritis, infiltrative neoplasm of acute tubular necrosis or considered less likely. No hydronephrosis. Stomach and bowel: Unremarkable. No obstruction. No mucosal thickening. Appendix: Normal appendix.Bladder: Markedly distended urinary bladder. Reproductive: Hysterectomy. Intraperitoneal space: Unremarkable. No free air. No significant fluid collection. Bones/joints: There are degenerative changes of the spine. No acute fracture. No dislocation. Soft tissues: Unremarkable. Vasculature: Minimal atherosclerosis. No abdominal aortic aneurysm. Lymph nodes: Unremarkable. No enlarged lymph nodes. EGD: none Colonoscopy: a few years ago Allergies Allergy/AdvReac Type Severity Reaction Status Date / Time Penicillins Allergy Rash Verified 05/29/24 09:10 Patient History Medical History Chronic heel ulcer Restless leg syndrome Hypertension Hyperlipidemia Neuropathy Type 2 diabetes mellitus Social History Smoking Status: Never smoker Second Hand Exposure: No; Do You Dip or Chew Tobacco: No; Tobacco Cessation Education Requested by Patient: No Hx Alcohol Use: No Hx Substance Use: No Preferred Language: Lithuanian Communication Ability: Effective [employer] Supervisor Required: No Beliefs That Will Affect Care: None Current Living Situation: Alone Other Information That Helps Us Care for You: No Feels Safe at Home: Yes Safety Concerns: Feels Safe At This Time Assistive Devices: None Review of Systems Review of Systems: All other findings negative except as noted in HPI. Physical Exam Constitutional: WD/WN, vitals as above Respiratory: normal respiratory effort, lungs clear to auscultation Cardiovascular: RRR, no murmur, no edema Gastrointestinal (Abdomen): normal bowel sounds, soft, nontender, no hepatosplenomegaly Skin: no rashes, warm and dry Results & Data Vital Signs (Past 12 Hours) Vital Signs Temp Pulse Pulse Resp BP BP Pulse Ox 05/29/24 08:51 36.6 C 100 H 18 177/108 H 97 05/29/24 08:00 179/104 H 05/29/24 07:42 101 H 13 96 05/29/24 07:30 183/106 H 05/29/24 07:30 103 H 15 95 05/29/24 07:18 101 H 15 96 05/29/24 06:14 102 H 12 178/103 H 97 05/29/24 05:30 101 H 05/29/24 05:19 99 H 14 166/108 H 93 05/29/24 05:03 103 H 177/102 H 05/29/24 03:39 100 H 22 201/116 H 96 05/29/24 03:00 97 H 11 L 92 05/29/24 02:39 101 H 22 93 05/29/24 02:09 100 H 19 92 05/29/24 02:00 155/115 H 05/29/24 01:45 98 H 14 92 05/29/24 01:39 98 H 23 95 05/29/24 01:34 95 H 05/29/24 01:27 87 18 141/89 H 93 O2 Del Method 05/29/24 08:51 Room Air 05/29/24 08:00 05/29/24 07:42 05/29/24 07:30 05/29/24 07:30 05/29/24 07:18 05/29/24 06:14 Room Air 05/29/24 05:30 05/29/24 05:19 Room Air 05/29/24 05:03 05/29/24 03:39 Room Air 05/29/24 03:00 05/29/24 02:39 05/29/24 02:09 05/29/24 02:00 05/29/24 01:45 05/29/24 01:39 05/29/24 01:34 05/29/24 01:27 Room Air PG Care Time/CCT Total # of Minutes Spent Total Time Spent with Patient: Total time spent is greater than 50% in coordination of care (as documented) at patient's floor/unit and/or counseling patient: Coding Level of Care Code 47635 INT INP/OBS CARE 2/55MIN Diagnoses Nausea and vomiting, unspecified vomiting type R11.2 Vomiting type: unspecified (1) Nausea & vomiting Vomiting type: unspecified Qualified Code(s): R11.2 - Nausea with vomiting, unspecified
[2024-05-29] MEDS ORDERED: LOSARTAN POTASSIUM 25 MG TAB PO SCH (09:45)
[2024-05-29] MEDS: PANTOprazole 40 MG in SYRINGE 0 ML IV SCH (10:10)
[2024-05-29] MEDS: LACTATED RINGER'S 1,000 ML IV SCH (10:10)
[2024-05-29] MEDS: INSULIN ASPART PER UNIT CHARGE SC SCH (10:10)
[2024-05-29] MEDS: hydrALAZINE HCL 20 MG/ML VIAL IV ONE ×2 (10:12→18:06)
[2024-05-29] MEDS: ACETAMINOPHEN 1,000 MG/100 ML VIAL IV SCH (10:13)
[2024-05-29] MEDS: POLYETHYLENE (MIRALAX) 17 GM PACK PO SCH (10:13)
[2024-05-29 12:21] LABS: Hematocrit (blood only) 41.5 % (37.0-47.0); Hemoglobin 13.8 g/dl (12.0-16.0)
[2024-05-29 12:34] LABS: BUN Creatinine Ratio 40.4 (10-20); Creatinine Clr Calc Pharmacy 136.6 ml/min; Est GFR (African American) 126.2 ml/min; Est GFR (Non-African American) 108.9 ml/min; Potassium 3.8 mmol/L (3.5-5.1)
--- NOTE | 2024-05-29 14:14 | Communication Note ---
Date of Service: May 29, 2024 (1) Abdominal pain: 48F who presents to the ER with abdominal pain, nausea, vomiting x 3 days. Now admitted for further evaluation, symptomatic management. -Left kidney striation, bladder distention noted on CT A/P. No sign of kidney stone, or hydronephrosis. No evidence of colonic mass, though colonoscopy recommended for full evaluation. -Electrolytes, LFTs, CBC unremarkable. UA mildly positive, but not strongly indicative of UTI. UDS positive for opiates, though most likely from pain control given previous hospital. PDMP shows she was last prescribed oxycodone 5 mg in October 2022. Full urine drug report pending. -Etiology unclear at this time. -IV Zofran every 4 hours as needed nausea -IV Protonix 40 mg twice daily EUNICE -IV famotidine 20 mg twice daily as needed -Maintenance IVF: LR@125 mL/h x 1 bag -Urine culture pending -Bladder scan, straight cath as needed -GI consult placed, NPO after midnight for possible endoscopy 2. Hypertension -s/p IV labetolol and hydralazine -patient cannot tolerate PO meds, when able will resume her Losartan -continue to monitor BP and correct as needed. 3. Left heel wound -wound care consulted -follows up with [facility] outpatient for management AM CBC, BMP
--- NOTE | 2024-05-29 17:23 | Electrocardiogram Report ---
Test Reason : Blood Pressure : */* mmHG Vent. Rate : 98 BPM Atrial Rate : 98 BPM P-R Int : 148 ms QRS Dur : 92 ms QT Int : 400 ms P-R-T Axes : 49 12 19 degrees QTcB Int : 510 ms Normal sinus rhythm Possible Left atrial enlargement Abnormal ECG No previous ECGs available Confirmed by Chinedu Daly ([id number]) on 05/29/2024 5:23:28 PM Referred By: REFERRED SELF Confirmed By: Chiendu Daly
[2024-05-29] MEDS: HYDROmorphone INJ 0.5 MG/0.5 ML SYR IV PRN (19:26)
--- NOTE | 2024-05-30 03:23 | Billing Data ---
Date of Service May 30, 2024 Coding Level of Care Code 43240 INT INP/OBS CARE
[2024-05-30] MEDS ORDERED: Nursing to Pharmacy Communication SCH (03:45)
[2024-05-30] MEDS: INSULIN ASPART PER UNIT CHARGE SC SCH ×2 (05:23→12:49)
[2024-05-30 06:09] LABS: Hematocrit (blood only) 41.7 % (37.0-47.0); Hemoglobin 15.2 g/dl (12.0-16.0); Mean Corpuscular Hemoglobin 31.5 pg (25.0-34.0); Mean Corpuscular Hgb Conc 36.5 g/dL (32.0-36.0); Mean Corpuscular Volume 86.5 fL (80.0-100.0); Mean Platelet Volume 11.6 fL (9.4-12.4); Platelet Count 281 K/uL (130-400); RDW Coefficient of Variation 12.8 % (11.5-14.5); RDW Standard Deviation 39.9 fL (36.4-46.3); Red Blood Count 4.82 M/uL (4.20-5.40)
[2024-05-30 06:19] LABS: BUN Creatinine Ratio 47.1 (10-20); Calcium 8.9 mg/dl (8.6-10.3); Creatinine Clr Calc Pharmacy 152.7 ml/min; Est GFR (African American) 130.9 ml/min; Est GFR (Non-African American) 112.9 ml/min; Potassium 3.4 mmol/L (3.5-5.1)
[2024-05-30] MEDS ORDERED: PROMETHAZINE 12.5 MG/50.5 ML BAG IV PRN (06:57)
[2024-05-30 07:21] LABS: Estimated Average Glucose 355 mg/dl
[2024-05-30] MEDS: ONDANSETRON INJ 2 MG/ML 2 ML VIAL IV PRN (07:48)
[2024-05-30] MEDS: POTASSIUM CHLORIDE / WTR 10 MEQ/100 ML PLCT IV ONE (08:25)
[2024-05-30] MEDS: LACTATED RINGER'S 1,000 ML IV SCH (08:26)
[2024-05-30] MEDS: hydrALAZINE HCL 20 MG/ML VIAL IV ONE ×2 (08:30→13:40)
[2024-05-30] MEDS ORDERED: PHARMACY GLYCEMIC MGMT CONSULT PRN (09:01)
--- NOTE | 2024-05-30 09:43 | Gastroenterology Progress Note ---
Date of Service May 30, 2024 Assessment & Plan (1) Nausea & vomiting: Plan: 48 year old female with history of T2DM, HTN, dyslipidemia who recently started Ozempic about a month ago who is admitted after 2 ED visits at OSH for altered mental status, HTN urgency w/ ongoing abd pain, nausea/vomiting, reports of hematemesis, imaging w/ a distended urinary bladder, possible pyelonephritis vs other. H&H on admission stable, repeat HGB 15.2 w/o BUN elevation. She has remained hypertensive with BP this AM 194/114. GI DDX discussed including suspected esophagitis or Janee-Arvizu tear related to prolonged episodes of nausea/vomiting vs other. As there has been no ongoing evidence of GI bleeding and stable HGB, will defer endoscopic evaluation unless urgently indicated as she is not medically optimized. Resume diet as tolerated Trend H&H Monitor and document GI output Transfuse PRN per primary service IV PPI BID for 48 hours then PO PPI BID Avoid NSAIDs Can continue anti-emetics as needed Consider an alternative to Ozempic as it appears she is having difficultly tolerating this medication She can follow up with her established GI team as an OP for an OP EGD +/- GES Recall GI as needed I spent a total of 40 minutes on the date of service in review of patient's record, and previously obtained information in person and appropriate medical visit, discussion and education of plan, with patient and/or caregiver, placing orders for tests/referral/procedures as medically necessary and documentation of pertinent clinical information in patient's medical records for their visit today. Admission and Anticipated Discharge Date Admission Date: May 29, 2024 Supervising Physician Co-Signing Physician Notes I personally saw and examined the patient. I have reviewed the chart and agree with the documentation provided by the [employer] including discussion about the assessment, treatment and plan. Feels back to normal except htn urgency. suggest advance to solid diet. Outpt egd as not medically optimized and risk of bleeding now after 72 hours very low. PPI bid x 5 days and then qd and outpt gi followup. WE will sign off, please call with questions. Subjective Pt was seen and evaluated, chart reviewed. Was NPO for GI evaluation. Her mental status has improved, however, she still remains hypertensive w/ BP 194/114. She notes her abd pain is improving. No further emesis in 24 hours. Review of Systems Review of Systems: All other findings negative except as noted in HPI. Physical Exam Constitutional: WD/WN, vitals as above Respiratory: normal respiratory effort, lungs clear to auscultation Cardiovascular: Rate/Rhythm: regular rate and regular rhythm Gastrointestinal (Abdomen): normal bowel sounds, soft, nontender, no hepatosplenomegaly Skin: no rashes, warm and dry Results & Data Results & Data Vital Signs (Past 12 Hours) Vital Signs Temp Pulse Pulse Resp BP BP Pulse Ox 05/30/24 07:36 37.2 C 89 18 185/102 H 194/114 H 96 05/30/24 03:44 36.8 C 87 18 171/99 H 96 05/30/24 00:15 36.9 C 93 H 18 167/97 H 99 05/29/24 23:00 88 O2 Del Method 05/30/24 07:36 Room Air 05/30/24 03:44 Room Air 05/30/24 00:15 Room Air 05/29/24 23:00 PG Care Time/CCT Total # of Minutes Spent Total Time Spent with Patient: Total time spent is greater than 50% in coordination of care (as documented) at patient's floor/unit and/or counseling patient: Coding Level of Care Code 52665 SUB INP/OBS CARE 2/35MIN Diagnoses Nausea and vomiting, unspecified vomiting type R11.2 Vomiting type: unspecified (1) Nausea & vomiting Vomiting type: unspecified Qualified Code(s): R11.2 - Nausea with vomiting, unspecified
[2024-05-30] MEDS ORDERED: Nursing to Pharmacy Communication ONE (10:36)
[2024-05-30] MEDS: LOSARTAN POTASSIUM 25 MG TAB PO SCH (10:57)
--- NOTE | 2024-05-30 12:08 | Pharmacy Report ---
Pharmacy Glycemic Short Note 2 - Date of Service May 30, 2024 - Glycemic Short BSG Results (Last 24 hours): 05/29/24 05/29/24 05/29/24 11:50 16:35 22:15 Glucose 279 H POC Glucose 168 H 184 H 05/30/24 05/30/24 05/30/24 05:03 05:36 11:57 Glucose 239 H POC Glucose 200 H 198 H OUTPATIENT ANTIDIABETIC REGIMEN: * Insulin lispro 8 units SC TIDM * Metformin 1000 mg PO BID HbA1c: 14% (05/30/24) ASSESSMENT: * LG is a 48 year old female admitted on 05/29/24 for evaluation of abdominal pain * Pharmacy consulted for glycemic management on 05/30, patient has been hyperglycemic as inpatient w/ poor control as outpatient * Originally NPO after midnight today for possible endoscopy, but this has now been deferred. Diet ordered. * Will initiate basal insulin today and tighten Novolog parameters. * Patient reporting improvement in abdominal pain. PLAN FOR INPATIENT GLYCEMIC CONTROL: * Hold outpatient oral diabetes medications * Basal insulin * Lantus 10 units SQ x 1 * Lantus 0-5-10 units SC HS (see EHR for details) * Bolus insulin * NovoLog per scale ACHS or Q6hrs while NPO * Goal Range: Low 110 mg/dL - High 140 mg/dL * Correction Factor: 30 mg/dL/unit * Nutritional / Prandial insulin per carb ratio of 1 unit per 9 grams CHO consumed
[2024-05-30] MEDS: LANTUS PER UNIT CHARGE SC ONE ×2 (12:48→20:35)
[2024-05-30] MEDS: amLODIPine BESYLATE 5 MG TAB PO ONE (13:07)
--- NOTE | 2024-05-30 13:57 | Hospitalist Progress Note ---
Date of Service May 30, 2024 Assessment & Plan (1) Abdominal pain: Plan: 48F who presents to the ER with abdominal pain, nausea, vomiting x 3 days. Now admitted for further evaluation, symptomatic management. - Left kidney striation, bladder distention noted on CT A/P. No sign of kidney stone, or hydronephrosis. No evidence of colonic mass, though colonoscopy recommended for full evaluation. - CBC reviewed 05/30- stable -BMP reviewed 05/30 - potassium mildly low at 3.4, creatinine 0.51, BUN 24 - UA mildly positive, but not strongly indicative of UTI. - UDS positive for opiates, though most likely from pain control given previous hospital. PDMP shows she was last prescribed oxycodone 5 mg in October 2022. Full urine drug report pending. -Etiology unclear at this time - likely from Ozempic use, may have underlying gastroparesis given poorly controlled Diabetes -IV Zofran every 4 hours as needed nausea -IV Protonix 40 mg twice daily EUNICE -IV famotidine 20 mg twice daily as needed -Maintenance IVF: LR@125 mL/h x 2 bag -Urine culture pending -Bladder scan, straight cath as needed -GI note reviewed 05/30 - no EGD due to HTN and stable hgb. can follow up outpatient -Advance diet to carb consistent as tolerated AM CBC, BMP (2) Nausea & vomiting: Plan: see plan above (3) Hypertensive urgency: Plan: Patient reports to be off Losartan at home for about a month due to inability to afford it after losing her insurance. She recently resumed this but then developed N/V and was unable to keep it down. -s/p IV labetalol in ER -s/p IV Hydralazine 05/29 and 05/30 -resumed PO Losartan on 05/30 -adding Amlodipine 2.5mg prior to bed 05/30 (4) Open wound of left heel: Plan: Patient has deep wound of left heel, routinely follows with [facility] for treatment. -Left foot x-ray 05/30: negative -follow up with [facility]al care next week at scheduled appointment -wound nurse consulted, appreciate recommendations. Plan Diet: carb consistent type 2 Code status: full Disposition: ancipitate discharge home 05/31 Admission and Anticipated Discharge Date Admission Date: May 29, 2024 Subjective Patient seen and examined this afternoon. Patient did not have EGD today due to stable hgb and hypertension. Patient states her nausea has been better since being in the hospital. She has been able to intake liquids with no vomiting. Denies any abdominal pain. Patient states she does follow with [facility] for her wounds and her next appt. is next week. Her last appt. was last week. She states she recently had an MRI of her foot outpatient. Patient also states she lost her insurance and was off her losartan for about a month. She states she recently re-started it but then developed N/V from ozempic and couldn't keep her medications down. Physical Exam 2 Constitutional: WD/WN, vitals as above Eyes: PERRL, conjunctivae normal, anicteric sclerae Respiratory: normal respiratory effort, lungs clear to auscultation Cardiovascular: RRR, no murmur, no edema Skin: no rashes, warm and dry Psychiatric: A+Ox3, euthymic affect Results & Data Results & Data Vital Signs (Past 12 Hours) Vital Signs Temp Pulse Pulse Resp BP BP Pulse Ox 05/30/24 11:14 37.2 C 96 H 18 185/117 H 95 05/30/24 10:27 92 H 05/30/24 07:36 37.2 C 89 18 185/102 H 194/114 H 96 05/30/24 03:44 36.8 C 87 18 171/99 H 96 O2 Del Method 05/30/24 11:14 Room Air 05/30/24 10:27 05/30/24 07:36 Room Air 05/30/24 03:44 Room Air Laboratory Results 05/30/24 05:36 05/30/24 05:36 PG Care Time/CCT Total # of Minutes Spent Total Time Spent with Patient: Total time spent is greater than 50% in coordination of care (as documented) at patient's floor/unit and/or counseling patient: Coding Level of Care Code 56854 SUB INP/OBS CARE 2/35MIN Diagnoses Generalized abdominal pain R10.84 Abdominal location: generalized Nausea and vomiting, unspecified vomiting type R11.2 Vomiting type: unspecified Hypertensive urgency I16.0 Open wound of left heel, initial encounter S91.302A Encounter type: initial encounter (1) Abdominal pain Abdominal location: generalized Qualified Code(s): R10.84 - Generalized abdominal pain (2) Nausea & vomiting Vomiting type: unspecified Qualified Code(s): R11.2 - Nausea with vomiting, unspecified (4) Open wound of left heel Encounter type: initial encounter Qualified Code(s): S91.302A - Unspecified open wound, left foot, initial encounter
--- NOTE | 2024-05-30 15:35 | XRay Report ---
XR foot LT min 3V routine CLINICAL HISTORY: left heel wound TECHNIQUE: 3 views of the left foot were obtained. Comparison: None available at the time of this dictation. FINDINGS: No evidence of bony erosion is seen. The joint spaces are well preserved. Heel ulcer and soft tissue swelling are seen. IMPRESSION: Heel ulcer and soft tissue swelling are seen. No evidence of osteomyelitis. ACT 112: Negative or not required by law. Electronically signed by: Cesar Kim M.D. 05/30/2024 3:34 PM
[2024-05-30 23:13] LABS: Codeine Urine NEGATIVE ng/mL (<50); Hydrocodone Urine NEGATIVE ng/mL (<50); Hydromor Urine 287 ng/mL (<50); Morphine Urine 1100 ng/mL (<50); Norhydrocodone Conf Ur NEGATIVE ng/mL (<50); Noroxycodone Urine NEGATIVE ng/mL (<50); Oxycodone Urine NEGATIVE ng/mL (<50); Oxymorph Urine NEGATIVE ng/mL (<50)
[2024-05-31 06:58] LABS: Hematocrit (blood only) 38.1 % (37.0-47.0); Hemoglobin 12.9 g/dl (12.0-16.0); Mean Corpuscular Hemoglobin 28.7 pg (25.0-34.0); Mean Corpuscular Hgb Conc 33.9 g/dL (32.0-36.0); Mean Corpuscular Volume 84.7 fL (80.0-100.0); Mean Platelet Volume 11.6 fL (9.4-12.4); Platelet Count 206 K/uL (130-400); RDW Coefficient of Variation 12.4 % (11.5-14.5); RDW Standard Deviation 37.7 fL (36.4-46.3); White Blood Count 7.44 K/ul (4.8-10.8)
[2024-05-31 07:56] VITALS: RESP 18; O2SAT 97
[2024-05-31] MEDS: LANTUS PER UNIT CHARGE SC SCH (09:13)
[2024-05-31 09:18] LABS: Calcium 8.4 mg/dl (8.6-10.3); Potassium 3.1 mmol/L (3.5-5.1)
[2024-05-31 09:24] LABS: BUN Creatinine Ratio 46.9 (10-20); Est GFR (African American) 132.6 ml/min; Est GFR (Non-African American) 114.4 ml/min
[2024-05-31] MEDS: PROMETHAZINE HCL 12.5 MG in SODIUM CHLORIDE 0.9% 50 ML IV PRN (09:26)
--- NOTE | 2024-05-31 10:55 | Discharge Summary ---
Discharge Summary Date of Service May 31, 2024 Principal Dx & Hospital Course #1 = Principal Diagnosis (1) Abdominal pain: 48F who presents to the ER with abdominal pain, nausea, vomiting x 3 days. Now admitted for further evaluation, symptomatic management. She had a CTAP that was negative for kidney stones, hydronephrosis colonic mass. Colonoscopy recommended for full evaluation. CBC and BMP stable on day of discharge. Urine drug panel positive for opiates but patient also previously at 2 other hospitals for similar symptoms. She was given IV zofran, protonix, and pepcid. Her urine culture was positive for lactobacillus but patient had no urinary complaints and abx therapy was deferred. Gi was consulted and elected to avoid EGD due to stability of hgb and the patient being in hypertensive urgency. She can follow up with GI outpatient. Cause of abdominal pain likely related to Ozempic use. Patient also noticed left sided chest discomfort this morning when IV was flushed. Following flushing she had no further symptoms. No chest pain or shortness of breath. EKG was obtained which did show normal sinus rhythm. (2) Nausea & vomiting: see plan above (3) Hypertensive urgency: Patient reports to be off Losartan at home for about a month due to inability to afford it after losing her insurance. She recently resumed this but then developed N/V and was unable to keep it down. She was given IV Labetaolol in ER and IV hydralazine while on the floor. She resumed PO Losartan on 05/30. she was discharged home with her Losartan and addition of 2.5mg PO amlodipine prior to bed. She is to monitor with at home cuff and follow closely with her PCP. (4) Open wound of left heel: Patient has deep wound of left heel, routinely follows with [facility] for treatment. She had left foot x-ray on 05/30 negative for osteomyelitis. She has appt at [facility] next week which she was encouraged to follow up on. Admission HPI Per Admitting Provider Maxine is a 48-year-old woman with no significant past medical history visiting from [place] who presents to the ER with her mom with a complaint of abdominal pain, nausea, and hematemesis since Tuesday. Symptoms began with nonradiating abdominal pain, then proceeded to vomiting blood soon after. She initially presented to the hospital in [place], where she received IV Zofran and was sent home. She continued throwing up blood over the following day, until Tuesday when she traveled to [place] to be with her sister. Sister then took her to her mother in [place], where she again went to the hospital. There she received IV morphine, and Dilaudid, at which point she was again discharged. Mom then decided to bring her to [facility], where she presented to the ER. ER workup was notable for blood glucose of 283, UA positive for proteinuria 2+, glucosuria 3+, ketonuria 2+, bacteria 2+ (negative nitrates, no leuk esterases), and UDS positive for opiates. Otherwise, WBC, Hgb, electrolytes, LFTs, procalcitonin, lipase were all normal. CT A/P noted "striated nephrogram at superior pole of the left kidney could represent acute pyelonephritis, infiltrative neoplasm of acute tubular necrosis or considered less likely" and a "markedly distended urinary bladder." She received IV Phenergan, IV Bentyl, IV Protonix, IV Carafate, IV Pepcid, IV ceftriaxone, and a 1 L NS bolus. Hospitalist service was then consulted for admission. On admission, she continues to endorse nausea, periumbilical, RLQ abdominal pain. She denies difficulty voiding, burning with urination, urinary frequency, constipation, or diarrhea. Discharge Exam Constitutional WD/WN, vitals as above Eyes PERRL, conjunctivae normal, anicteric sclerae Respiratory normal respiratory effort, lungs clear to auscultation Cardiovascular RRR, no murmur, no edema Gastrointestinal (Abdomen) normal bowel sounds, soft, nontender, no hepatosplenomegaly Skin no rashes, warm and dry Psychiatric A+Ox3, euthymic affect Updated Medication List Medication Instructions Recorded Confirmed Type furosemide 20 mg tablet 20 mg PO DAILY 05/30/24 05/30/24 History hydroxyzine HCl 25 mg tablet 12.5 - 25 mg PO TID PRN Anxiety 05/30/24 05/30/24 History insulin lispro 100 unit/mL 8 unit subcut TIDWMEAL 05/30/24 05/30/24 History subcutaneous pen losartan 25 mg tablet 25 mg PO DAILY 05/30/24 05/30/24 History metformin 1,000 mg tablet 1,000 mg PO BID 05/30/24 05/30/24 History ondansetron 4 mg disintegrating 4 mg PO Q6H PRN Nausea And Vomiting 05/30/24 05/30/24 History tablet pantoprazole 40 mg tablet,delayed 40 mg PO DAILY 05/30/24 05/30/24 History release promethazine 25 mg tablet 25 mg PO QID PRN Nausea And 05/30/24 05/30/24 History Vomiting amlodipine 2.5 mg tablet 2.5 mg PO HS #30 tabs 05/31/24 Rx Hospital Stay Data Consultations 05/29/24 05:36 ED Decision to Admit Stat 05/29/24 07:30 Consult Gastroenterology Routine Diagnostic Imagining Performed Chest X-Ray 05/29/24 01:27 XR chest 1V portable CLINICAL HISTORY: Abdominal pain, nausea and vomiting. COMPARISON STUDY: No previous studies for comparison. FINDINGS: There is mild elevation of the right hemidiaphragm. No pneumothorax or pleural effusion is present. Bibasilar linear densities favor atelectasis. There is borderline cardiomegaly without evidence for pulmonary edema. IMPRESSION: 1. No acute cardiopulmonary findings. 2. Linear bibasilar densities suggestive of atelectasis. ACT 112: Negative or not required by law. Electronically signed by: Priyank Archibald M.D. 05/29/2024 7:04 AM Abdomen/Pelvis CT 05/29/24 01:43 Exam(s): CT ABDOMEN + PELVIS With Contrast IV Amt: 118 ml optiray 320 EXAM: CT Abdomen and Pelvis With Intravenous Contrast CLINICAL HISTORY: Abdominal Pain. TECHNIQUE: Axial computed tomography images of the abdomen and pelvis with intravenous contrast. CTDI is 38.03 mGy and DLP is 3010.95 mGy-cm. Automated exposure control was utilized for the study. A dose lowering technique was utilized adhering to the principles of ALARA. CONTRAST: Patient received 118 ml optiray 320 of IV contrast COMPARISON: No relevant prior studies available. FINDINGS: Lung bases: Unremarkable. No mass. No consolidation. ABDOMEN: Liver: Unremarkable. No mass. Gallbladder and bile ducts: Cholecystectomy. No ductal dilation. Pancreas: Unremarkable. No mass. No ductal dilation. Spleen: Unremarkable. No splenomegaly. Adrenals: Unremarkable. No mass. Kidneys and ureters: Striated nephrogram of the superior pole of the left kidney could represent acute pyelonephritis, infiltrative neoplasm of acute tubular necrosis or considered less likely. No hydronephrosis. Stomach and bowel: Unremarkable. No obstruction. No mucosal thickening. PELVIS: Appendix: Normal appendix. Bladder: Markedly distended urinary bladder. Reproductive: Hysterectomy. ABDOMEN and PELVIS: Intraperitoneal space: Unremarkable. No free air. No significant fluid collection. Bones/joints: There are degenerative changes of the spine. No acute fracture. No dislocation. Soft tissues: Unremarkable. Vasculature: Minimal atherosclerosis. No abdominal aortic aneurysm. Lymph nodes: Unremarkable. No enlarged lymph nodes. IMPRESSION: 1. Striated nephrogram of the superior pole of the left kidney could represent acute pyelonephritis, infiltrative neoplasm of acute tubular necrosis or considered less likely. 2. Markedly distended urinary bladder. Cannot exclude outlet obstruction. 3. No evidence of colon mass, however recommend follow-up with colonoscopy for complete evaluation. Electronically signed by: Christina Gee MD 05/29/24 03:09 AM Chest CTA 05/29/24 01:43 Exam(s): CTA CHEST IV Amt: 118 ml optiray 320 EXAM: CT Angiography Chest With Intravenous Contrast CLINICAL HISTORY: Chest Pain TECHNIQUE: Axial computed tomographic angiography images of the chest with intravenous contrast. MIPS images were created and reviewed. CTDI is 38. 03 mGy and DLP is 3010.95 mGy-cm. Automated exposure control was utilized for the study. A dose lowering technique was utilized adhering to the principles of ALARA. MIP reconstructed images were created and reviewed. COMPARISON: No relevant prior studies available. FINDINGS: Pulmonary arteries: Unremarkable. No pulmonary embolus. Aorta: There is ectasia of the ascending aorta measuring 3.6 cm. No thoracic aortic aneurysm. Lungs: Interseptal thickening could relate to atelectasis and/or pulmonary edema. No mass. Pleural space: Unremarkable. No significant effusion. No pneumothorax. Heart: Upper limits of normal cardiac silhouette. No significant pericardial effusion. No evidence of RV dysfunction. Bones/joints: There are degenerative changes of the spine. No acute fracture. No dislocation. Soft tissues: Unremarkable. Lymph nodes: Unremarkable. No enlarged lymph nodes. IMPRESSION: 1. No pulmonary embolus. 2. There is ectasia of the ascending aorta measuring 3.6 cm. 3. Interseptal thickening could relate to atelectasis and/or pulmonary edema. Electronically signed by: Christina Gee MD 05/29/24 03:[address] 05/29/24 01:43 Exam(s): CT HEAD Without Contrast EXAM: CT Head Without Intravenous Contrast CLINICAL HISTORY: Altered mental status. TECHNIQUE: Axial computed tomography images of the head/brain without intravenous contrast. CTDI is 27.32 mGy and DLP is 3010.95 mGy-cm. Automated exposure control was utilized for the study. A dose lowering technique was utilized adhering to the principles of ALARA. COMPARISON: No relevant prior studies available. FINDINGS: Brain: Unremarkable. No significant white matter disease. No intracranial hemorrhage, mass-effect or midline shift. No abnormal extra axial fluid. No evidence of acute infarct. Ventricles: Unremarkable. No ventriculomegaly. Bones/joints: Unremarkable. No acute fracture. Soft tissues: Unremarkable. Sinuses: There is mild mucosal thickening of the ethmoid and maxillary sinuses. The remaining visualized paranasal sinuses are clear. Mastoid air cells: Unremarkable as visualized. No mastoid effusion. IMPRESSION: No acute intracranial finding. Electronically signed by: Christina Gee MD 05/29/24 03:11 AM Foot X-Ray 05/30/24 12:11 XR foot LT min 3V routine CLINICAL HISTORY: left heel wound TECHNIQUE: 3 views of the left foot were obtained. Comparison: None available at the time of this dictation. FINDINGS: No evidence of bony erosion is seen. The joint spaces are well preserved. Heel ulcer and soft tissue swelling are seen. IMPRESSION: Heel ulcer and soft tissue swelling are seen. No evidence of osteomyelitis. ACT 112: Negative or not required by law. Electronically signed by: Cesar Kim M.D. 05/30/2024 3:34 PM Pending Results Patient Have Any Pending Studies at Discharge: No Discharge Instructions Given to Patient (Per Discharging Provider) Ms. Louis, You were recently hospitalized for nausea and vomiting. While inpatient, you also had high blood pressure that was managed with IV medications. Your left heel wound was x-rayed and showed no concerning findings. Please see recommendations below regarding your discharge. 1. Please take Pantoprazole 40mg twice daily. Your next dose will be this evening 05/31 2. Please use Zofran every 4 hours as needed for nausea and vomiting. 3. Please avoid use of Ozempic in future 4. Please take Losartan daily in the morning. 5. Please take Amlodipine for your blood pressure prior to bed. 6. Please monitor your blood pressure readings at home. 7. Please follow up with [facility] for your heel wound. 8. You may resume previous outpatient diabetic medications aside from the Ozempic. Please follow up with your PCP within 1-2 weeks. If you develop any worsening nausea/vomiting, abdominal pain, chest pain, or shortness of breath please report back to the ER. Sincerely, Abigail Hampton PA-C Total Time Total Time Spent Total Time Spent (In Minutes): 42 Total Time Includes: Examination of the Patient, Discharge Planning and Medication Reconciliation Supervising Physician Co-Signing Physician Notes During face to face encounter, I obtained a brief physical examination, discussed hospital stay with patient and discharge instructions with patient. I discussed discharge plan of care with ROSA Hampton. I reviewed above note and agree with it except for the following: Patient will be discharged a harish symptoms improved. WIll hold off ozempic use as this was likely the culprit. Coding Level of Care Code 74067 INP/OBS DISCH >30 MIN Diagnoses Generalized abdominal pain R10.84 Abdominal location: generalized Nausea and vomiting, unspecified vomiting type R11.2 Vomiting type: unspecified Hypertensive urgency I16.0 Open wound of left heel, initial encounter S91.302A Encounter type: initial encounter
[2024-05-31 11:44] VITALS: BP 127/70; TEMP 98.6
[2024-05-31 14:39] VITALS: PULSE 93
--- NOTE | 2024-05-31 14:54 | Electrocardiogram Report ---
Test Reason : Blood Pressure : */* mmHG Vent. Rate : 90 BPM Atrial Rate : 90 BPM P-R Int : 144 ms QRS Dur : 90 ms QT Int : 384 ms P-R-T Axes : 23 14 18 degrees QTcB Int : 469 ms Normal sinus rhythm Possible Left atrial enlargement T wave abnormality, consider lateral ischemia Prolonged QT Abnormal ECG When compared with ECG of 29-May-2024 01:43, Inverted T waves have replaced nonspecific T wave abnormality in Lateral leads Confirmed by Chinedu Daly ([id number]) on 05/31/2024 2:54:15 PM Referred By: REFERRED SELF Confirmed By: Chinedu Daly
[2024-06-01] MEDS ORDERED: LANTUS PER UNIT CHARGE SC SCH (09:00)
== END 2024-05-31 15:00 | disposition home or self-care (01) | DRG 392 ==
LOC: SUATTDRO → ED 01:19 → SUATTDRO 06:27 → INTOOBSV 06:27 → 2N 06:27